=== PATIENT | male | born 1960 | race Hispanic/Latino ===

== ENCOUNTER 2023-12-18 12:24 | Emergency (ER) | payer BC, OTHER ==
[~2023-12-18] VITALS: Ht 177.8 cm; Wt 106.6 kg
[~2023-12-18 12:24] MED LIST: JANUVIA; Z.0.GLIPIZIDE10 MG PO; Z.1.METFORMIN HCL100 PO
[2023-12-18 12:35] VITALS: PULSE 64; RESP 16; TEMP 98; O2SAT 100
[2023-12-18] MEDS ORDERED: SODIUM CHLORIDE 0.9% 1000ML 1,000 ML IV STA (12:44)
[2023-12-18] MEDS ORDERED: ASPIRIN 81 MG CHEW TAB PO ONE (12:45)
== END 2023-12-18 13:15 | disposition home or self-care (01) ==
LOC: ER 12:47
DX: R00.2 Palpitations (principal); R07.9 Chest pain, unspecified; E11.9 Type 2 diabetes mellitus without complications
CPT/HCPCS: 93005; 99283